=== PATIENT | female | born 1965 | race Caucasian/White ===

== ENCOUNTER → 2017-04-22 | Outpatient (CLI) | payer BC ==
--- NOTE | 2017-04-23 11:57 | ECHOF ---
Referral Reason:R00.1 Bradycardia MEASUREMENTS -------- HEIGHT: 149.9 cm WEIGHT: 62.6 kg BP: RVIDd: 2.2 cm (< 3.3) IVSd: 0.9 cm (0.6 - 1.1) LVIDd: 3.8 cm (3.9 - 5.3) LVPWd: 1.0 cm (0.6 - 1.1) IVSs: 1.2 cm LVIDs: 2.8 cm LVPWs: 1.3 cm LAESV Index (A-L): 16.91 ml/m Ao Diam: 2.7 cm (2.0 - 3.7) AV Cusp: 1.6 cm (1.5 - 2.6) LA Diam: 3.2 cm (2.7 - 3.8) MV EXCURSION: 19.436 mm (> 18.000) MV EF SLOPE: 133 mm/s (70 - 150) EPSS: 0.5 cm MV E Solis: 1.08 m/s MV DecT: 208 ms MV A Solis: 0.60 m/s MV E/A Ratio: 1.81 RAP: 5.00 mmHg RVSP: 21.84 mmHg FINDINGS -------- Sinus rhythm. This was a technically adequate study. The left ventricular size is normal. Left ventricular wall thickness is normal. Overall left vent ricular systolic function is mildly impaired with, an EF between 45 - 50 %. The right ventricle is normal in size and function. Normal LA size by volume 22+/-6 ml/m2. The right atrium is normal in size. The aortic valve is trileaflet, and appears structurally normal. No aortic stenosis or regurgitation. The mitral valve leaflets are mildly thickened. There is trace to mild mitral regurgitation. Trace tricuspid regurgitation present. Right ventricular systolic pressure is normal at < 35 mmHg. There is no evidence of pulmonary hypertension. Trace/mild (physiologic) pulmonic regurgitation. The aortic root size is normal. Normal inferior vena cava with normal inspiratory collapse consistent with estimated right atrial pre ssure of 5 mmHg. The pericardium is normal. There is no pericardial effusion. CONCLUSIONS -------- 1. Sinus rhythm. 2. This was a technically adequate study. 3. The left ventricular size is normal. 4. Left ventricular wall thickness is normal. 5. Overall left ventricular systolic function is mildly impaired with, an EF between 45 - 50 %. 6. Normal LA size by volume 22+/-6 ml/m2. 7. The aortic valve is trileaflet, and appears structurally normal. No aortic stenosis or regurgitati on. 8. The mitral valve leaflets are mildly thickened. 9. There is trace to mild mitral regurgitation. 10. Trace tricuspid regurgitation present. 11. Right ventricular systolic pressure is normal at < 35 mmHg. 12. There is no evidence of pulmonary hypertension. 13. Trace/mild (physiologic) pulmonic regurgitation. 14. The aortic root size is normal. 15. There is no pericardial effusion. DIRECTOR OF MARKET INTELLIGENCE: Zoltan Sims RDCS
== END | disposition home or self-care (01) ==
LOC: RADECHMAIN 16:02
PROVIDERS: ATTEND Family Medicine
DX: I34.0 Nonrheumatic mitral (valve) insufficiency (principal); I51.7 Cardiomegaly; R00.1 Bradycardia, unspecified
CPT/HCPCS: 93306

== ENCOUNTER → 2017-07-10 | Outpatient (CLI) | payer BC ==
--- NOTE | 2017-07-10 17:44 | US ---
EXAMINATION TYPE: US thyroid st tissue head/neck DATE OF EXAM: 07/10/2017 COMPARISON: NONE CLINICAL HISTORY: I88.9 Nonspecific lymphadenitis, unspecified; thyroid US and US neck was ordered as patient notes lumps bilateral upper neck. GLAND SIZE: Right Lobe: 3.6 x 1.5 x 1.4 cm Overall Parenchyma: homogenous Left Lobe: 4.0 x 1.2 x 1.2 cm Overall Parenchyma: homogeneous Isthmus Thickness: 0.3 cm NODULES RIGHT: # of nodules measured on right: 1 1. 0.6 X 0.5 x 0.4 cm hypoechoic mixed nodule at the mid pole with well-defined margins. This nod ule is wider than tall and shows no intranodular vascularity. LEFT: # of nodules measured on left: 1 1. 0.2 X 0.2 x 0.1 cm hypoechoic cystic nodule at the mid pole with well-defined margins. This nod ule is wider than tall and shows no intranodular vascularity. ISTHMUS: # of nodules measured in the isthmus: 0 Bilateral neck scanned: superior and medial to right thyroid multiple nodes are seen with largest = 1 .1 x 1.1 x 0.6cm; superior to left thyroid lymph node is seen = 1.7 x 0.9 x 0.7cm. IMPRESSION: Small complex cysts in both thyroid lobes of doubtful significance. No dominant thyroid mass. Multipl e cervical lymph nodes are demonstrated that measure up to 11 x 6 mm on the right side and 17 x 10 mm on the left side.
== END | disposition home or self-care (01) ==
LOC: RADUSWWP 16:08
PROVIDERS: ATTEND Family Medicine
DX: E04.2 Nontoxic multinodular goiter (principal)
CPT/HCPCS: 76536

== ENCOUNTER → 2017-07-21 | Day surgery (SDC) | payer BC ==
[2017-07-17 09:52] VITALS: BMI 28.8
[~2017-07-21] MED LIST: ALPRAZolam 0.25 MG TAB PO PRN; ALPRAZolam 0.5 MG TAB PO PRN; ASPIRIN 325 MG TAB PO STA; ATORVASTATIN 80 MG TAB PO STA; HEPARIN SODIUM 1,000 UN/ML (10ML VL) IV ONE; HEPARIN SODIUM 1,000 UN/ML (10ML VL) ONE; IOPAMIDOL-370 125ML BTL INJ ONE; LIDOCAINE 2% INJ 20 MG/ML SQ ONE; MIDAZOLAM 2 MG/2 ML VIAL IV ONE; MIDAZOLAM 2 MG/2 ML VIAL ONE; NITROGLYCERIN SL TABS 0.4 MG TAB SUBLINGUAL PRN; RX INFO: IV CONTRAST WAS GIVEN 1 EACH MISC MISCELLANE PRN; SODIUM CHLORIDE 0.9% 1,000 ML IV SCH; SODIUM CHLORIDE 0.9% 1,000 ML in EMPTY BAG 1 BAG IV ONE; VERAPAMIL 2.5 MG/ML 2 ML AMP ONE
[2017-07-21 11:16] VITALS: TEMP 97.6
[2017-07-21 11:38] LABS: Basophils % (A) 1 %; Eosinophils # (A) 0.1 k/uL (0-0.7); Eosinophils % (A) 1 %; HCT 41.4 % (34.0-46.0); HGB 13.7 gm/dL (11.4-16.0); Lymphocytes # (A) 2.7 k/uL (1.0-4.8); Lymphocytes % (A) 31 %; MCH 28.8 pg (25.0-35.0); MCHC 33.1 g/dL (31.0-37.0); MCV 87.1 fL (80.0-100.0); Mean Platelet Volume 7.8; Monocytes # (A) 0.4 k/uL (0-1.0); Monocytes % (A) 5 %; Neutrophils # (A) 5.5 k/uL (1.3-7.7); Neutrophils % (A) 62 %; Platelet Count 323 k/uL (150-450); RBC 4.76 m/uL (3.80-5.40); RDW 13.5 % (11.5-15.5); WBC 8.9 k/uL (3.8-10.6)
[2017-07-21 11:46] LABS: Anion Gap 13 mmol/L; Blood Urea Nitrogen 11 mg/dL (7-17); Calcium 9.4 mg/dL (8.4-10.2); Carbon Dioxide 23 mmol/L (22-30); Chloride 109 mmol/L (98-107); Glucose 96 mg/dL (74-99); Potassium 3.9 mmol/L (3.5-5.1); Sodium 145 mmol/L (137-145)
[2017-07-21] MEDS: VERAPAMIL SYRINGE (5 MG/10 ML) INTRAARTER ONE ×2 (13:38→13:51)
[2017-07-21 17:17] VITALS: BP 103/53; PULSE 52; RESP 18
--- NOTE | 2017-07-22 06:08 | CC ---
CARDIAC CATHETERIZATION REPORT DATE OF SERVICE: 07/21/2017 PERFORMING PHYSICIAN: Lester Lagunas MD, beet topper. PROCEDURE PERFORMED: 1. Selective right and left coronary angiogram. 2. Left heart catheterization. INDICATION: This is a pleasant 51-year-old female patient who was experiencing exertional shortness of breath with symptoms concerning for angina. A heart catheterization was recommended. APPROACH: Right radial artery. COMPLICATION: None. LEVEL OF SEDATION: Moderate with sedation length of 17 minutes. PROCEDURE DESCRIPTION: After obtaining an informed consent, the patient was brought to the cardiac slab conditioner supervisor. The right radial artery was cannulated using micropuncture technique, the micropuncture wire passed easily, then I placed a 6-Jordanian sheath in the right radial artery. After that, I did give the patient 2 mg of verapamil IA and 10,000 units of heparin IV. Subsequently I did selective right and left coronary angiogram using JR4 and JL3.5 catheters. I did left heart catheterization using 5-Jordanian pigtail catheter. The procedure was completed without any complication. SELECTIVE CORONARY ANGIOGRAM: 1. The RCA is a medium caliber vessel and it is a dominant vessel. It is angiographically normal. 2. The left main is angiographically normal. 3. The left circumflex is also angiographically normal. 4. The LAD is angiographically normal and the LAD in the mid to distal and distal portion becomes small to medium caliber vessel. HEMODYNAMICS: The left ventricular end-diastolic pressure was 12 mmHg and no gradient was identified across the aortic valve. CONCLUSION: 1. Normal coronary angiogram. 2. Possible coronary vasospasm in the left anterior descending artery. 3. Bradycardia throughout the procedure with the resting heart rate in the upper 30s and 40s. The patient needs to have a 24 hour Holter monitor and possible permanent pacemaker implantation depends on the Holter results. MMODL / IJN: [id number] /
== END | disposition home or self-care (01) ==
LOC: CATHCVL 10:49
PROVIDERS: ATTEND Internal Medicine Interventional Cardiology
DX: R00.1 Bradycardia, unspecified (principal); E78.5 Hyperlipidemia, unspecified; I65.23 Occlusion and stenosis of bilateral carotid arteries; F17.210 Nicotine dependence, cigarettes, uncomplicated; Z79.899 Other long term (current) drug therapy; Z82.49 Family history of ischemic heart disease and other diseases of the circulatory system
CPT/HCPCS: 93458; 80048; 85025; C1894; J2001; J2250; J1644; Q9967

== ENCOUNTER → 2017-07-30 | Outpatient (CLI) | payer BC ==
--- NOTE | 2017-07-30 17:56 | CT ---
EXAMINATION TYPE: CT soft tissue neck w con DATE OF EXAM: 07/30/2017 5:09 PM COMPARISON: Ultrasound 07/10/2017 HISTORY: Follow up US per patient CT DLP: 323 mGycm Automated exposure control for dose reduction was used. CONTRAST: CT scan of the neck is performed following with IV Contrast, patient injected with 100 mL of Isovue 3 00. Axial images are obtained, coronal and sagittal reformatted images are reviewed. FINDINGS: Emphysematous changes involving the lung apices noted. Subcentimeter hypodensities within the thyroid lobes suggestive of thyroid nodules. Shotty adenopathy seen throughout all compartments of the neck. Single pathologic sized lymph nodes i n the left carotid space noted measuring short axis of 1 cm. This corresponds with the ultrasound fin dings. Submandibular and parotid glands are symmetric and normal appearance. Vocal cords have a normal appearance. Base of the tongue is symmetric. Oropharynx and nasopharynx sym metric. Mild facet arthropathy noted involving the cervical spine. Intracranial and intraorbital structures have a normal appearance. IMPRESSION: 1. Subcentimeter thyroid nodules. 2. Shotty adenopathy scattered throughout all compartments of the neck bilaterally with a single path ologic sized lymph node measuring 1 cm in short axis within the left carotid space consistent with th e ultrasound finding. 3. Rather significant findings of emphysema involving the lung apices.
== END | disposition home or self-care (01) ==
LOC: RADCTMAIN 16:18
PROVIDERS: ATTEND Otolaryngology
DX: E04.2 Nontoxic multinodular goiter (principal); R59.0 Localized enlarged lymph nodes
CPT/HCPCS: 70491; Q9967

== ENCOUNTER 2018-01-09 13:48 | Emergency (ER) | payer BC ==
[2018-01-09] MEDS ORDERED: DIAZEPAM 5 MG/ML 2 ML INJ IVP STA (14:37)
[2018-01-09] MEDS ORDERED: MECLIZINE 25 MG TAB PO STA (14:37)
--- NOTE | 2018-01-09 14:40 | ED ---
General Adult HPI - General Chief complaint: Dizziness Stated complaint: dizziness/lightheaded Time Seen by Provider: 01/09/18 14:00 Source: patient, RN notes reviewed Mode of arrival: ambulatory - History of Present Illness Initial comments: This a 52-year-old female presents emergency Department complaining of 3-4 day history of dizziness. Patient states when she moves her head the symptoms have become much worse. Patient states closer eyes seems to make the symptoms better. Patient denies any headache patient denies lightheadedness or near- syncopal episode. Patient denies any chest pain or palpitations. Patient denies difficulty breathing shortest breath. Patient denies any similar symptoms in the past. Patient denies any recent fever chills or cough. Patient denies abdominal pain patient denies any nausea vomiting diarrhea. Patient denies any dysuria hematuria urinary frequency. Patient denies any recent trauma - Related Data Home Medications Medication Instructions Recorded Confirmed PARoxetine HCL 20 mg PO HS 07/17/17 01/09/18 buPROPion XL [Wellbutrin XL] 150 mg PO DAILY 01/09/18 01/09/18 Previous Rx's Medication Instructions Recorded Meclizine [Antivert] 25 mg PO TID #20 tab 01/09/18 Allergies Allergy/AdvReac Type Severity Reaction Status Date / Time lactose Allergy GI UPSET Verified 01/09/18 15:37 latex Allergy Rash/Hives Verified 01/09/18 15:37 Latex, Natural Rubber Allergy Rash/Hives Verified 01/09/18 15:37 Review of Systems ROS Statement: Those systems with pertinent positive or pertinent negative responses have been documented in the HPI. ROS Other: All systems not noted in ROS Statement are negative. Past Medical History Past Medical History: Hyperlipidemia, Sleep Apnea/CPAP/BIPAP Additional Past Medical History / Comment(s): recent finding of enlarged neck lymph node. low blood pressure/heart rate History of Any Multi-Drug Resistant Organisms: None Reported Past Surgical History: No Surgical Hx Reported Past Anesthesia/Blood Transfusion Reactions: Family History of Problems w/ Anesthesia Additional Past Anesthesia/Blood Transfusion Reaction / Comment(s): NEVER HAS HAD ANESTHESIA. PTS MOTHER IS "VERY SENSITIVE" TO ANESTHESIA, "DIFFICULT TO AWAKEN" Past Psychological History: No Psychological Hx Reported Smoking Status: Current every day smoker Past Alcohol Use History: Occasional Past Drug Use History: None Reported - Past Family History Mother Family Medical History: Hypertension Additional Family Medical History / Comment(s): COLITIS Father History Unknown: Yes Family Medical History: Hypertension General Exam - General Exam Comments Initial Comments: GENERAL: Patient is well-developed and well-nourished. Patient is nontoxic and well- hydrated and is in mild distress. ENT: Neck is soft and supple. No significant lymphadenopathy is noted. Oropharynx is clear. Moist mucous membranes. Neck has full range of motion without eliciting any pain. EYES: The sclera were anicteric and conjunctiva were pink and moist. Extraocular movements were intact and pupils were equal round and reactive to light. Eyelids were unremarkable. PULMONARY: Unlabored respirations. Good breath sounds bilaterally. No audible rales rhonchi or wheezing was noted. CARDIOVASCULAR: There is a regular rate and rhythm without any murmurs gallops or rubs. ABDOMEN: Soft and nontender with normal bowel sounds. No palpable organomegaly was noted. There is no palpable pulsatile mass. SKIN: Skin is clear with no lesions or rashes and otherwise unremarkable. NEUROLOGIC: Patient is alert and oriented x3. Cranial nerves II through XII are grossly intact. Motor and sensory are also intact. Normal speech, volume and content. Symmetrical smile. Cerebellar exam grossly intact. MUSCULOSKELETAL: Normal extremities with adequate strength and full range of motion. No lower extremity swelling or edema. No calf tenderness. LYMPHATICS: No significant lymphadenopathy is noted PSYCHIATRIC: Normal psychiatric evaluation. Course Vital Signs 01/09/18 01/09/18 14:01 15:34 Temperature 98.3 F Pulse Rate 72 60 Respiratory 16 18 Rate Blood Pressure 111/67 111/63 O2 Sat by Pulse 98 97 Oximetry Medical Decision Making - Medical Decision Making EKG shows sinus bradycardia at [address] interval 166 dresses 78 QT interval 442 QTC is 422. Patient's EKG shows no ST segment elevation or depression or T wave abnormalities are noted Chest x-ray shows no acute abnormality. Computed tomography scan shows no acute normalities. I gave the patient Antivert and Valium in the emergency department her symptoms were much improved. - Lab Data Result diagrams: 01/09/18 14:40 01/09/18 14:40 Lab Results 01/09/18 01/09/18 01/09/18 Range/Units 14:40 14:40 14:40 WBC 9.3 (3.8-10.6) k/uL RBC 5.15 (3.80-5.40) m/uL Hgb 15.1 (11.4-16.0) gm/dL Hct 46.0 (34.0-46.0) % MCV 89.4 (80.0-100.0) fL MCH 29.4 (25.0-35.0) pg MCHC 32.9 (31.0-37.0) g/dL RDW 13.7 (11.5-15.5) % Plt Count 344 (150-450) k/uL Neutrophils % 56 % Lymphocytes % 35 % Monocytes % 5 % Eosinophils % 1 % Basophils % 1 % Neutrophils # 5.2 (1.3-7.7) k/uL Lymphocytes # 3.2 (1.0-4.8) k/uL Monocytes # 0.4 (0-1.0) k/uL Eosinophils # 0.1 (0-0.7) k/uL Basophils # 0.1 (0-0.2) k/uL PT (9.0-12.0) sec INR (<1.2) APTT (22.0-30.0) sec Sodium 143 (137-145) mmol/L Potassium 4.1 (3.5-5.1) mmol/L Chloride 109 H (98-107) mmol/L Carbon Dioxide 24 (22-30) mmol/L Anion Gap 10 mmol/L BUN 11 (7-17) mg/dL Creatinine 0.79 (0.52-1.04) mg/dL Est GFR (CKD-EPI)AfAm >90 (>60 ml/min/1.73 sqM) Est GFR (CKD-EPI)NonAf 87 (>60 ml/min/1.73 sqM) Glucose 111 H (74-99) mg/dL Calcium 10.1 (8.4-10.2) mg/dL Magnesium 2.4 H (1.6-2.3) mg/dL Total Bilirubin 0.4 (0.2-1.3) mg/dL AST 22 (14-36) U/L ALT 22 (9-52) U/L Alkaline Phosphatase 82 (38-126) U/L Total Creatine Kinase 129 (30-135) U/L CK-MB (CK-2) 0.9 (0.0-2.4) ng/mL CK-MB (CK-2) Rel Index 0.7 Troponin I <0.012 (0.000-0.034) ng/mL Total Protein 8.1 (6.3-8.2) g/dL Albumin 4.7 (3.5-5.0) g/dL 01/09/18 Range/Units 14:40 WBC (3.8-10.6) k/uL RBC (3.80-5.40) m/uL Hgb (11.4-16.0) gm/dL Hct (34.0-46.0) % MCV (80.0-100.0) fL MCH (25.0-35.0) pg MCHC (31.0-37.0) g/dL RDW (11.5-15.5) % Plt Count (150-450) k/uL Neutrophils % % Lymphocytes % % Monocytes % % Eosinophils % % Basophils % % Neutrophils # (1.3-7.7) k/uL Lymphocytes # (1.0-4.8) k/uL Monocytes # (0-1.0) k/uL Eosinophils # (0-0.7) k/uL Basophils # (0-0.2) k/uL PT 10.0 (9.0-12.0) sec INR 1.0 (<1.2) APTT 26.5 (22.0-30.0) sec Sodium (137-145) mmol/L Potassium (3.5-5.1) mmol/L Chloride (98-107) mmol/L Carbon Dioxide (22-30) mmol/L Anion Gap mmol/L BUN (7-17) mg/dL Creatinine (0.52-1.04) mg/dL Est GFR (CKD-EPI)AfAm (>60 ml/min/1.73 sqM) Est GFR (CKD-EPI)NonAf (>60 ml/min/1.73 sqM) Glucose (74-99) mg/dL Calcium (8.4-10.2) mg/dL Magnesium (1.6-2.3) mg/dL Total Bilirubin (0.2-1.3) mg/dL AST (14-36) U/L ALT (9-52) U/L Alkaline Phosphatase (38-126) U/L Total Creatine Kinase (30-135) U/L CK-MB (CK-2) (0.0-2.4) ng/mL CK-MB (CK-2) Rel Index Troponin I (0.000-0.034) ng/mL Total Protein (6.3-8.2) g/dL Albumin (3.5-5.0) g/dL Disposition Clinical Impression: Vertigo Disposition: HOME SELF-CARE Instructions: Vertigo (ED) Prescriptions: Meclizine [Antivert] 25 mg PO TID #20 tab Is patient prescribed a controlled substance at d/c from ED?: No Referrals: Jose Cotto MD [Primary Care Provider] - 1-2 days Time of Disposition: 16:00
[2018-01-09 14:53] LABS: Basophils # (A) 0.1 k/uL (0-0.2); Basophils % (A) 1 %; Eosinophils # (A) 0.1 k/uL (0-0.7); Eosinophils % (A) 1 %; HGB 15.1 gm/dL (11.4-16.0); Lymphocytes # (A) 3.2 k/uL (1.0-4.8); Lymphocytes % (A) 35 %; MCH 29.4 pg (25.0-35.0); MCHC 32.9 g/dL (31.0-37.0); MCV 89.4 fL (80.0-100.0); Mean Platelet Volume 7.7; Monocytes # (A) 0.4 k/uL (0-1.0); Monocytes % (A) 5 %; Neutrophils # (A) 5.2 k/uL (1.3-7.7); Neutrophils % (A) 56 %; Platelet Count 344 k/uL (150-450); RBC 5.15 m/uL (3.80-5.40); RDW 13.7 % (11.5-15.5); WBC 9.3 k/uL (3.8-10.6)
[2018-01-09 15:08] LABS: Partial Thromboplastin Time 26.5 sec (22.0-30.0)
--- NOTE | 2018-01-09 15:09 | XR ---
EXAMINATION TYPE: XR chest 2V DATE OF EXAM: 01/09/2018 COMPARISON: NONE HISTORY: Chest pain and dizziness. TECHNIQUE: Frontal and lateral views of the chest are obtained. FINDINGS: Reticulonodular interstitial changes are present bilaterally. There is no focal air space opacity, pleural effusion, or pneumothorax seen. The cardiac silhouette size is within normal limits . The osseous structures are intact. IMPRESSION: Suspect some chronic parenchymal change without suspicious acute pulmonary process.
[2018-01-09 15:17] LABS: ALT 22 U/L (9-52); AST 22 U/L (14-36); Albumin 4.7 g/dL (3.5-5.0); Alkaline Phosphatase 82 U/L (38-126); Anion Gap 10 mmol/L; Blood Urea Nitrogen 11 mg/dL (7-17); Calcium 10.1 mg/dL (8.4-10.2); Carbon Dioxide 24 mmol/L (22-30); Chloride 109 mmol/L (98-107); Creatine Kinase 129 U/L (30-135); Glucose 111 mg/dL (74-99); Magnesium 2.4 mg/dL (1.6-2.3); Potassium 4.1 mmol/L (3.5-5.1); Sodium 143 mmol/L (137-145); Total Bilirubin 0.4 mg/dL (0.2-1.3); Total Protein 8.1 g/dL (6.3-8.2)
--- NOTE | 2018-01-09 15:24 | CT ---
EXAMINATION TYPE: CT brain wo con DATE OF EXAM: 01/09/2018 HISTORY: dizziness, light-headed per order. CT DLP: 1036.0 mGycm. Automated Exposure Control for Dose Reduction was Utilized. TECHNIQUE: CT scan of the head is performed without contrast. COMPARISON: None. FINDINGS: There is no acute intracranial hemorrhage or midline shift identified. Ventricles and cason lci are within normal limits in size. The globes are intact and the visualized sinuses are clear. Persistent anterior metopic suture is incidentally noted. Mastoid air cells show no suspicious opaci fication. IMPRESSION: No acute intracranial hemorrhage or midline shift. There is diffuse age-related cerebra l atrophy and chronic small vessel ischemic change noted.
[2018-01-09 15:29] LABS: Creatine Kinase MB 0.9 ng/mL (0.0-2.4); Troponin I <0.012 ng/mL (0.000-0.034)
[2018-01-09 15:35] VITALS: RESP 18
[2018-01-09 16:11] VITALS: BP 115/70; PULSE 69; TEMP 98
== END 2018-01-09 16:11 | disposition home or self-care (01) ==
LOC: EC 13:48
DX: R42 Dizziness and giddiness (principal); F17.200 Nicotine dependence, unspecified, uncomplicated; G47.30 Sleep apnea, unspecified; Z99.89 Dependence on other enabling machines and devices; Z79.899 Other long term (current) drug therapy; Z91.011 Allergy to milk products; Z91.040 Latex allergy status
CPT/HCPCS: 36415; 93005; 80053; 82550; 82553; 83735; 84484; 85025; 85610; 85730; 71046; 70450; 99284; 96374; J3360

== ENCOUNTER → 2018-05-07 | Outpatient (CLI) | payer BC ==
--- NOTE | 2018-05-08 13:42 | MM ---
Reason for exam: screening (asymptomatic). Last mammogram was performed 3 years and 3 months ago. History: Patient is postmenopausal. Family history of breast cancer in paternal aunt. Physical Findings: A clinical breast exam by your physician is recommended on an annual basis and results should be correlated with mammographic findings. MG 3D Screening Mammo W/Cad Bilateral CC and MLO view(s) were taken. Prior study comparison: February 03, 2015, mammogram, performed at [facility]. April 10, 2009, mammogram, performed at [facility]. The breast tissue is heterogeneously dense. This may lower the sensitivity of mammography. No suspicious abnormality. No significant changes when compared with prior studies. ASSESSMENT: Negative, BI-RAD 1 RECOMMENDATION: Routine screening mammogram of both breasts in 1 year.
== END | disposition home or self-care (01) ==
LOC: RADMAMWWP 16:42
PROVIDERS: ATTEND Nurse Practitioner Adult Health
DX: Z12.31 Encounter for screening mammogram for malignant neoplasm of breast (principal)
CPT/HCPCS: 77063; 77067

== ENCOUNTER → 2018-07-29 | Outpatient (CLI) | payer BC ==
--- NOTE | 2018-07-30 08:11 | US ---
EXAMINATION TYPE: US thyroid st tissue head/neck DATE OF EXAM: 07/29/2018 COMPARISON: NONE CLINICAL HISTORY: E04.1 Thyroid nodule. thyroid nodule GLAND SIZE: Right Lobe: 3.4 x 1.4 x 1.6 cm Overall Parenchyma: homogenous Left Lobe: 3.5 x 1.3 x 1.4 cm Overall Parenchyma: homogeneous Isthmus Thickness: 0.4 cm NODULES RIGHT: # of nodules measured on right: 1 1. 0.6 X 0.5 x 0.5 cm mixed nodule at the mid pole with well-defined margins; . This nodule is wid er than tall and shows intranodular vascularity. Prior size: 0.6 x 0.5 x 0.4 cm LEFT: # of nodules measured on left: 0. The previously seen thyroid nodule is not redemonstrated as it measured only 0.2 x 0.2 x 0.1 cm on the prior. ISTHMUS: # of nodules measured in the isthmus: 0 Bilateral neck scanned, multiple nonenlarged lymph nodes noted bilaterally IMPRESSION: Very small subcentimeter thyroid nodules. There is redemonstration of nonenlarged surrounding lymph n odes again now measuring only 7 mm in short axis, within normal limits.
== END | disposition home or self-care (01) ==
LOC: RADUSWWP 15:25
PROVIDERS: ATTEND Family Medicine
DX: E04.1 Nontoxic single thyroid nodule (principal)
CPT/HCPCS: 76536